=== PATIENT | female | born 1980 | race Caucasian/White ===

== ENCOUNTER 2016-12-30 21:26 | Emergency (ER) | payer MEDICAID ==
[~2016-12-30] VITALS: Ht 160 cm; Wt 102.8 kg
[2016-12-30 22:21] LABS: HCG UR OBC PASS
[2016-12-30 23:29] LABS: BLOOD UREA NITROGEN 7 mg/dL (7-18)
[2016-12-30 23:33] LABS: ASPARTATE AMINO TRANSFERASE 17 U/L (15-37)
[2016-12-31 00:25] VITALS: BP 138/79
== END 2016-12-31 00:28 | disposition home or self-care (01) ==
LOC: ED 22:03
DX: K64.8 Other hemorrhoids (principal); I10 Essential (primary) hypertension
CPT/HCPCS: 36415; 74022; 80053; 81001; 81025; 85025; 85610; 85730; 99285

== ENCOUNTER 2017-06-19 22:01 | Emergency (ER) | payer MEDICAID ==
[~2017-06-19] VITALS: Ht 157.5 cm; Wt 103.1 kg
[2017-06-19] MEDS ORDERED: PROMETHAZINE 25 MG/ML, 1ML IM ONE (23:00)
[2017-06-19] MEDS ORDERED: KETOROLAC 30 MG/1 ML IM ONE (23:00)
[2017-06-19] MEDS ORDERED: KETOROLAC 30 MG/1 ML ONE (23:11)
[2017-06-19] MEDS ORDERED: PROMETHAZINE 25 MG/ML, 1ML ONE (23:11)
[2017-06-19 23:21] LABS: HEMATOCRIT 40.7 % (34.6-47.8); HEMOGLOBIN 13.6 g/dL (11.7-16.4); WHITE BLOOD COUNT 9.3 x10^3/uL (3.4-10)
[2017-06-19 23:26] LABS: BLOOD UREA NITROGEN 9 mg/dL (7-18)
[2017-06-20] MEDS ORDERED: OXYcodone/APAP 5/325MG TABLET ONE (00:25)
[2017-06-20 00:27] VITALS: BP 149/91
[2017-06-20] MEDS ORDERED: OXYcodone/APAP 5/325MG TABLET PO PRN (00:30)
== END 2017-06-20 01:15 | disposition home or self-care (01) ==
LOC: ED 23:54
DX: G44.52 New daily persistent headache (NDPH) (principal); I10 Essential (primary) hypertension
CPT/HCPCS: 36415; 70450; 80048; 82040; 84703; 85025; 85651; 96372; 99285; J1885; J2550